=== PATIENT | male | born 1940 | race Caucasian/White ===

== ENCOUNTER → 2017-08-18 | Outpatient (CLI) | payer MEDICARE ==
[~2017-08-18] MED LIST: GINKGO BILOBA PO; MULTIVITAMIN1 TA1 PO; PRAVASTATIN40 MG PO; PREVACID 30MG C30 M1 PO; PRIMIDONE 50 MG50 MG; SEPTRA DS 800 M1 TAB PO; XANAX 0.5MG TA0.5 MG PO
== END ==
LOC: RT 12:09
DX: R00.2 Palpitations (principal)